=== PATIENT | female | born 2005 | race Caucasian/White ===

== ENCOUNTER 2025-04-16 23:49 | Emergency (ER) | payer BC, SELFPAY ==
--- OUTSIDE RECORDS SUMMARY | 2023-11-20 08:00 | XMS_ITS ---
Author Organization Arpan Munoz M.D. Address [address] [place] [address] [facility] [place] [address] Care Team Providers Care Industrial Millwright Name Role Phone Ksenia Delgadillo Primary Care Provider Mary Beth ReyseCarlito Unavailable [phone] REASON FOR VISIT d/t pt having a cold Medications Medication SIG (Take, Route, Frequency, Duration) Notes Start Date End Date Status Na Sulfate-K Sulfate-Mg Sulf 17.5-3.13-1.6 GM/177ML Orally; Duration: 1 days 10/23/2023 Act nazia Procedures Procedure Date Ordered Date Performed Result Body Sit e COLONOSCOPY w/ MAC 11/20/2023 12/21/2023 N/A Encounters Encounter Location Date Provider Diagnosis [address] [place] [address] 11/20/2023 Carlito Reyes Diarrhea, unspecifie d R19.7 and Generalized abdominal pain R10.84 Assessments Encounter Date Diagnosis (ICD Code) Assessment Notes Treatment Notes Treatment Clinical Notes Section Notes 11/20/2023 Diarrhea, unspecified (ICD-10 - R19.7) Patient Educated with: Colonoscopy (Colonoscopy.pdf ) Patient Educated with: http://[email or web address] Digital.Integrata Security/ (http://www.G4S.com/) 11/20/2023 Generalized abdominal pain (ICD-10 - R10.84) Plan Of Treatment Medication Medication Name Sig Start Date Stop Date Notes Na Sulfate-K Sulfate-Mg Sulf 17.5-3.13-1.6 GM/177ML Orally; Duration: 1 days 10/23/2023 Treatment Notes Assessment Notes Diarrhea, unspecified Patient Educated w ith: Colonoscopy (Colonoscopy.pdf) Patient Educated with: http://www.Deliveroo/ (http://www.Deliveroo/) Progress Notes * Laya JEAN RDOB: (19 yo M)Acc No.[id number]:11/20/2023 Progress Note Patient: Laya TREVIZO Provider: Joan Reyes MD :2005 A ge:18 Y S ex:Male Date:11/20/2023 Address:[address] [place] [address], [place], [id number] Pcp:Ksenia Delgadillo Subjective: * Chief Complaints: * 1 . D/t pt having a cold. * Medical History: Objective: * Vitals: Assessment: * Assessment: 1. D iarrhea, unspecified - R19.7 2 . G eneralized abdominal pain - R10.84? Plan: * Treatment: Notes: Patient Educated with: Colonoscopy (Colonoscopy.pdf) Patient Educated with: http://www.Deliveroo/ (http://www.Deliveroo/)??2.?Generalized abdominal pain?Procedure: COLONOSCOPY w/ MAC (Performed Date - 12/21/2023)* Avis Stevens 10/23/2023 2:28:36 PM > CSP scheduled with anesthesia 11/20/2023 @ 2:00 PM.Joanna Copeland 11/19/2023 8:50:37 AM > Patient rescheduled CSP w/ MAC to 12/21/23 @10:00am * Images: Billing Information: * Visit Code: * Procedure Codes: * Electronic signature of Aust in MD Eric on 04/16/2025 at 08:51 PM AKST Sign off status: Pending * Provider: Joan Reyes MD Date: 0 11/20/2023 Generated for Aston thomas/Avila/eTransmitting on: 1 06/16/2024 08:51 PM AKST
--- OUTSIDE RECORDS SUMMARY | 2023-11-20 08:00 | XMS_ITS ---
Author Organization Arpan Munoz M.D. Address [address] [place] [address] [facility] [place] [address] Care Team Providers Care Regional Operations Manager Name Role Phone Ksenia Delgadillo Primary Care Provider Mary Beth ReyesCarlito Unavailable [phone] REASON FOR VISIT d/t pt having a cold Medications Medication SIG (Take, Route, Frequency, Duration) Notes Start Date End Date Status Na Sulfate-K Sulfate-Mg Sulf 17.5-3.13-1.6 GM/177ML Orally; Duration: 1 days 10/23/2023 Act nazia Procedures Procedure Date Ordered Date Performed Result Body Sit e COLONOSCOPY w/ MAC 11/20/2023 12/21/2023 N/A Encounters Encounter Location Date Provider Diagnosis [address] [place] [address] 11/20/2023 Carlito Reyes Diarrhea, unspecifie d R19.7 and Generalized abdominal pain R10.84 Assessments Encounter Date Diagnosis (ICD Code) Assessment Notes Treatment Notes Treatment Clinical Notes Section Notes 11/20/2023 Diarrhea, unspecified (ICD-10 - R19.7) Patient Educated with: Colonoscopy (Colonoscopy.pdf ) Patient Educated with: http://[email or web address].[email or web address]/ (http://www.iMICROQ.com/) 11/20/2023 Generalized abdominal pain (ICD-10 - R10.84) Plan Of Treatment Medication Medication Name Sig Start Date Stop Date Notes Na Sulfate-K Sulfate-Mg Sulf 17.5-3.13-1.6 GM/177ML Orally; Duration: 1 days 10/23/2023 Treatment Notes Assessment Notes Diarrhea, unspecified Patient Educated w ith: Colonoscopy (Colonoscopy.pdf) Patient Educated with: http://www.Novatris/ (http://www.Novatris/) Progress Notes * Laya JEAN RDOB: (19 yo M)Acc No.[id number]:11/20/2023 Progress Note Patient: Laya TREVIZO Provider: Joan Reyes MD :2005 A ge:18 Y S ex:Male Date:11/20/2023 Address:[address] [place] [address], [place], [id number] Pcp:Ksenia Delgadillo Subjective: * Chief Complaints: * 1 . D/t pt having a cold. * Medical History: Objective: * Vitals: Assessment: * Assessment: 1. D iarrhea, unspecified - R19.7 2 . G eneralized abdominal pain - R10.84? Plan: * Treatment: Notes: Patient Educated with: Colonoscopy (Colonoscopy.pdf) Patient Educated with: http://www.Novatris/ (http://www.Novatris/)??2.?Generalized abdominal pain?Procedure: COLONOSCOPY w/ MAC (Performed Date - 12/21/2023)* Avis Stevens 10/23/2023 2:28:36 PM > CSP scheduled with anesthesia 11/20/2023 @ 2:00 PM.Joanna Copeland 11/19/2023 8:50:37 AM > Patient rescheduled CSP w/ MAC to 12/21/23 @10:00am * Images: Billing Information: * Visit Code: * Procedure Codes: * Electronic signature of Aust in MD Eric on 04/17/2025 at 12:08 AM AKST Sign off status: Pending * Provider: Joan Reyes MD Date: 0 11/20/2023 Generated for Aston thomas/Avila/eTransmitting on: 1 06/17/2024 12:08 AM AKST
--- OUTSIDE RECORDS SUMMARY | 2023-12-21 04:00 | XMS_ITS ---
Author Organization Arpan Munoz M.D. Address [address] [place] [address] [address] [place] [address] Care Team Providers Care Farm Tractor Operator Name Role Phone Ksenia Delgadillo Primary Care Provider Carlito Lindsay [phone] REASON FOR VISIT w/ MAC Encounters Encounter Location Date Provider Diagnosis [address] [place] [address] 12/21/2023 Carlito Reyes Plan Of Treatment No Information Progress Notes * Laya JEAN RDOB: (19 yo M)Acc No.[id number]:12/21/2023 Progress Note Patient: Ramon FRANCOLaya GRIFFIN Provider: Joan Reyes MD :2005 A ge:18 Y S ex:Male Date:12/21/2023 Address:[facility] [address] [id number] Pcp:Ksenia Delgadillo Subjective: * Chief Complaints: * 1 . w/ MAC. * Medical History: Objective: * Vitals: Assessment: Plan: * Treatment: * Images: Billing Information: * Visit Code: * Procedure Codes: * Electronic signature of Aust in MD Eric on 04/16/2025 at 08:51 PM AKST Sign off status: Pending * Provider: Joan Reyes MD Date: 0 12/21/2023 Generated for Printi ng/Faxing/eTransmitting on: 06/16/2024 08:51 PM AKST
--- OUTSIDE RECORDS SUMMARY | 2023-12-21 04:00 | XMS_ITS ---
Author Organization Arpan Munoz M.D. Address [address] [place] [address] [address] [place] [id number] Care Team Providers Care Electric Transfer Operator Name Role Phone Ksenia Delgadillo Primary Care Provider Carlito Lindsay [phone] REASON FOR VISIT w/ MAC Encounters Encounter Location Date Provider Diagnosis [address] [place] [id number] 12/21/2023 Carlito Reyes Plan Of Treatment No Information Progress Notes * Laya JEAN RDOB: (19 yo M)Acc No.[id number]:12/21/2023 Progress Note Patient: Ramon FRANCOLaya GRIFFIN Provider: Joan Reyes MD :2005 A ge:18 Y S ex:Male Date:12/21/2023 Address:[facility] [address] [id number] Pcp:Ksenia Delgadillo Subjective: * Chief Complaints: * 1 . w/ MAC. * Medical History: Objective: * Vitals: Assessment: Plan: * Treatment: * Images: Billing Information: * Visit Code: * Procedure Codes: * Electronic signature of Aust in MD Eric on 04/17/2025 at 12:08 AM AKST Sign off status: Pending * Provider: Joan Reyes MD Date: 0 12/21/2023 Generated for Printi ng/Faxing/eTransmitting on: 1 06/17/2024 12:08 AM AKST
--- OUTSIDE RECORDS SUMMARY | 2025-04-16 23:51 | XMS_ITS | Patient Health Record ---
Author Organization Arpan Munoz M.D. Address [address] [facility] [address] [place] [address] Care Team Providers Care Gospel Singer Name Role Phone Ksenia Delgadillo Primary Care Provider Carlito Lindsay Unavailable [phone] Allergies No Known Allergies Reason For Referral No Information Medications Medication SIG (Take, Route, Frequency, Duration) Notes Start Date End Date Status Na Sulfate-K Sulfate-Mg Sulf 17.5-3.13-1.6 GM/177ML Orally; Duration: 1 days 10/23/2023 Active Erythromycin Ethylsuccinate 200 MG/5ML 5 ml Orally qd Active Reglan 5 MG 1 tablet before meal s Orally Twice a day; Duration: 30 day(s) Active Ondansetron 4 MG 1 tablet on the tong ue and allow to dissolve Orally Once a day prn Active Omeprazole 20 MG 1 capsule 30 minutes before morning meal Orally Once a day prn Active Nexplanon 68 MG as directed Subcutaneous Active Escitalopram Oxalate 5 MG 1/2 tablet Ora lly Once a day Active Tretinoin 0.05 % External; Duration: 30 Days prn Active Social History Tobacco Use: Social History Observation Description Date Details (start date - stop date) Never Smoker NA - NA Tobacco Use/Smoking Question Answer Notes Are you a nonsmoker Alcohol Screen Question Answer Notes Did you have a drink containing alcohol in the p ast year? No Points 0 Interpretation Negative Problems Problem Type SNOMED Code ICD Code Onset Dates Problem Status W/U Status Risk Notes Problem Generalized abdominal pain (605340456) Generalized abdominal pain (R10.84) Active confirmed Problem Diarrhea (52099626) Diarrhea, unspecified (R19.7) Active confirmed Problem Gastroparesis (463536815) Gastroparesis (K31.84) Active confirmed Plan Of Treatment Pending Test Test Name Order Date Immunoglobulins Quantitative A/E/G/M, Se rum 09/23/2023 Iron/TIBC* 09/23/2023 Insurance Providers Payer Name Payer Address Payer Phone Subscriber Number Group Number Insured Name Patient Relationship to Insured Coverage Start Date Coverage End Date [employer] [address] [address] [place], [place] [id number] Ariane Cortez Child - Insured has Financial Responsibility [facility] [address] [address] [place] [address] [id number] Ju[address] Duncan Child - Insured has Financial Responsibility Medical (General) History Medical History History ICD Code Iron deficiency Gastroparesis Gastroesophageal reflux disease (GERD) Bleeding disorder Poor appetite Family history of hereditarty hemorrhagi c telangiectasia (HHT) History of mononucleosis Menorrhagia Surgical History Surgery Date(Month/Year) EGD 11/2022 Nasal septum surgery 2020
--- OUTSIDE RECORDS SUMMARY | 2025-04-16 23:51 | XMS_ITS | Clinical Summary ---
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 Iron deficiency anemia 02/15/2024 Overview (02/15/2024): Received IV Iron 2022 in [place]. Anxiety 02/15/2024 Overview (02/15/2024): Anxiety: on Lexapro. Encounters Date Type Department Care Team Description 03/03/2025 2:40 PM CDT Office Visit [facility] [address] [place] [address] Carolina Sifuentes MD Follow Up (Still fatigued - roommate has [employer]. /Exhausted after running/Elevated HR at rest /Increased foot intake - feels more tired) 03/03/2025 Travel 02/20/2025 Telephone [facility] [address] [place] [address] Carolina Sifuentes MD Lab (Thyroid) 02/17/2025 3:30 PM CDT Ancillary Procedure [facility] [address] [place] [address] 02/17/2025 2:40 PM CDT Office Visit [facility] [address] [place] [address] Carolina Sifuentes MD Breathing Problem (vocal cord dysfunction /episode 3ish weeks ago. Still fatigued and struggling ) 02/17/2025 Travel from Last 3 Months Social History Tobacco Use Types Packs/Day Years Used Date Smoking Tobacco: Never Smokeless Tobacco: Never Tobacco Cessation:Counseling Given: Yes Alcohol Use Standard Drinks/Week Comments Never 0 (1 standard drink = 0.6 oz pur e alcohol) Social Connections Answer Date Recorded Do you often feel lonely or isolated from those around you? 4 02/17/2025 Alcohol Use Answer Date Recorded How often do you have a drink containing alcohol ? 0 02/17/2025 Average Number of Drinks Not on file 025 Frequency of Binge Drinking Not on file 01/30 Financial Resource Strain Answer Date R ecorded Difficulty of Paying Living Expenses 3 02/17/2025 Difficulty of Paying Living Expenses Not on file 02/17/2025 Food Insecurity Answer Date Recorded Do you worry your food will run out before you are able to buy more? 1 02/17/2025 Transportation Needs Answer Date Record ed Does lack of transportation keep you from medica l appointments? 1 02/17/2025 Does lack of transportation keep you from work, meetings or getting things that you need? 1 02/17/2025 Housing Stability Answer Date Recorded What is your housing situation today? 1 02/17/2025 Utilities Answer Date Recorded Do you have trouble paying f or utilities (for example, heat, electricity, water, phone)? 1 02/17/2025 Comments No Sex and Gender Information Value Date Recorded Sex Assigned at Not on file Legal Sex Female 9:55 AM CDT Gender Identity Not on file Sexual Orientation Not on file Obstetrics History Last Filed Vital Signs Vital Sign Reading Time Taken Comments Blood Pressure 116/74 03/03/2025 2:31 PM CDT Pulse 54 03/03/2025 2:31 PM CDT Temperature - - Respiratory Rate - - Oxygen Saturation 99% 03/03/2025 2:31 PM CDT Inhaled Oxygen Concentration - - Weight 60.1 kg (132 lb 8 oz) 02/15/2024 3:34 PM CDT Height - - Body Mass Index - - Plan of Treatment Health Maintenance Due Date Last Done Comments Well Child Check for age 3-20 06/03/2008 Tetanus booster 2016 Depression screening for age 12+ 2017 HIV for age 15-65 2020 HPV series for age 9-45 (1 - 3-dose series) 2020 Chlamydia for age 16-24 2021 BMI (ht and wt on same day) for age 18+ 2023 Hepatitis C screening for age 18-79 2023 Hepatitis B series for 19+ ( 1 of 3 - 19+ 3-dose series) 2024 Influenza Vaccine (#1) 2025 RSV vaccine for adults or pr egnancy (1 - 1-dose 75+ series) 2080 Meningococcal series for age 11-21 Aged Out No longer eligible based on patient's age to complete this topic Pneumococcal series for age 6-49 Aged Out No longer eligible based on patient's age to complete this topic Procedures Procedure Name Priority Date/Time Associated Diagnosis Comments HETEROPHILE Routine 03/03/2025 2:58 PM CDT Fatigue, unspecified type TSH WITH REFLEX Add On 02/17/2025 3:36 PM CDT Fatigue, unspecified type CBC WITH AUTO DIFFERENTIAL Routine 02/17/2025 3:36 PM CDT Fatigue, unspecified type Difficulty breathing LYME SCREEN W/REFLEX Routine 02/17/2025 3:36 PM CDT Fatigue, unspecified type Difficulty breathing CMV IGM ANTIBODY Routine 02/17/2025 3:36 PM CDT Fatigue, unspecified type Difficulty breathing EBV AB IGG IGM AND EBNA Routine 02/17/2025 3:36 PM CDT Fatigue, unspecified type Difficulty breathing VITAMIN D 25 (DEFICIENCY) Routine 02/17/2025 3:36 PM CDT Fatigue, unspecified type Difficulty breathing COMP METABOLIC PANEL Routine 02/17/2025 3:36 PM CDT Fatigue, unspecified type Difficulty breathing CBC WITH AUTO DIFFERENTIAL Routine 02/17/2025 3:36 PM CDT Fatigue, unspecified type Difficulty breathing FERRITIN Routine 02/17/2025 3:36 PM CDT Fatigue, unspecified type Difficulty breathing XR CHEST 2 VIEWS PA AND LATERAL Routine 02/17/2025 3:30 PM CDT Exercise induced laryngeal obstruction (EILO) Fatigue, unspecified type Difficulty breathing from Last 3 Months Results * HETEROPHILE (03/03/2025 2:58 PM CDT) [facility] HETEROPHILE, MONO SCREEN NEGATIVE NEGATIVE 03/04/2025 12:45 PM CDT [facility] Blood BLOOD SPECIMEN / Unknown [facility] / Unknown 03/03/2025 2:58 PM CDT 03/03/2025 2:58 PM CDT Carolina Sifuentes MD HEMATOLOGY Fi nal Result [facility] [id number] [place] [address], * (ABNORMAL) CBC WITH AUTO DIFFERENTIAL (02/17/2025 3:36 PM CDT) [facility] WHITE BLOOD CELL COUNT 6.4 3.8 - 10.8 Thousand/ uL 02/18/2025 3:44 AM CDT [facility] RED BLOOD CELL COUNT 4.78 3.80 - 5.10 Million/u L 02/18/2025 3:44 AM CDT [facility] HEMOGLOBIN 14.8 11.7 - 15.5 g/dL 02/18/2025 3:44 AM CDT [facility] HEMATOCRIT 45.5(H) 35.0 - 45.0 % 02/18/2025 3:44 AM CDT [facility] MCV 95.2 80.0 - 100.0 fL 02/18/2025 3:44 AM CDT [facility] MCH 31.0 27.0 - 33.0 pg 02/18/2025 3:44 AM CDT [facility] MCHC 32.5 32.0 - 36.0 g/dL 02/18/2025 3:44 AM CDT [facility] Comment: For adults, a slight decrease in the calculated MCHC value (in the range of 30 to 32 g/dL) is most likely not clinically significant; however, it should be interpreted with caution in correlation with other red cell parameters and the patient's clinical condition. RDW 12.4 11.0 - 15.0 % 02/18/2025 3:44 AM CDT [facility] PLATELET COUNT 279 140 - 400 Thousand/ uL 02/18/2025 3:44 AM CDT [facility] MPV 10.6 7.5 - 12.5 fL 02/18/2025 3:44 AM CDT [facility] NEUTROPHILS 63.3 % 02/18/2025 3:44 AM CDT [facility] LYMPHOCYTES 26.6 % 02/18/2025 3:44 AM CDT [facility] MONOCYTES 7.0 % 02/18/2025 3:44 AM CDT [facility] EOSINOPHILS 2.3 % 02/18/2025 3:44 AM CDT [facility] BASOPHILS 0.8 % 02/18/2025 3:44 AM CDT [facility] ABSOLUTE NEUTROPHILS 4051 1500 - 7800 cells/uL 02/18/2025 3:44 AM CDT [facility] ABSOLUTE LYMPHOCYTES 1702 850 - 3900 cells/uL 02/18/2025 3:44 AM CDT [facility] ABSOLUTE MONOCYTES 448 200 - 950 cells/uL 02/18/2025 3:44 AM CDT [facility] ABSOLUTE EOSINOPHILS 147 15 - 500 cells/uL 02/18/2025 3:44 AM CDT [facility] ABSOLUTE BASOPHILS 51 0 - 200 cells/uL 02/18/2025 3:44 AM CDT [facility] Blood BLOOD SPECIMEN / Unknown [facility] / Unknown 02/17/2025 3:36 PM CDT 02/17/2025 3:36 PM CDT Carolina Sifuentes MD HEMATOLOGY Fi nal Result [facility] [address] [address], * TSH WITH REFLEX (02/17/2025 3:36 PM CDT) TSH W/REFLEX TO FT4 1.41 mIU/L 02/22/2025 3:53 AM CDT [facility] Comment: Reference Range 1-19 Years 0.50-4.30 Ranges First trimester 0.26-2.66 Second trimester 0.55-2.73 Third trimester 0.43-2.91 Blood BLOOD SPECIMEN / Unknown [facility] / Unknown 02/17/2025 3:36 PM CDT 02/17/2025 3:36 PM CDT Carolina Sifuentes MD CHEMISTRY Fi nal Result [facility] [address] [address], * VITAMIN D 25 (DEFICIENCY) (02/17/2025 3:36 PM CDT) VITAMIN D,25-OH,TOTAL,IA 44 30 - 100 ng/mL 02/18/2025 4:57 AM CDT [facility] Comment: Vitamin D Status 25-OH Vitamin D: Deficiency: <20 ng/mL Insufficiency: 20 - 29 ng/mL Optimal: > or = 30 ng/mL For 25-OH Vitamin D testing on patients on D2-supplementation and patients for whom quantitation of D2 and D3 fractions is required, the QuestAssureD(TM) 25-OH VIT D, (D2,D3), LC/MS/MS is recommended: order code 21509 (patients >2yrs). See Note 1 Note 1 For additional information, please refer to http://education.[employer]/faq/COL923 (This link is being provided for informational/ educational purposes only.) Blood BLOOD SPECIMEN / Unknown [facility] / Unknown 02/17/2025 3:36 PM CDT 02/17/2025 3:36 PM CDT Carolina Sifuentes MD SEND OUTS Fi nal Result Performing Organization Address [facility] Co de Phone Number [facility] [address] [address], [place] [phone] * (ABNORMAL) EBV AB IGG IGM AND EBNA (02/17/2025 3:36 PM CDT) EBV VIRAL CAPSID AG (VCA) AB (IGG) 169.00(H) U/mL 02/18/2025 3:50 PM CDT [facility] Comment: U/mL Interpretation ---- <18.00 Negative 18.00-21.99 Equivocal >21.99 Positive EBV VIRAL CAPSID AG (VCA) AB (IGM) <36.00 U/mL 02/18/2025 3:50 PM CDT [facility] Comment: U/mL Interpretation ---- <36.00 Negative 36.00-43.99 Equivocal >43.99 Positive EBV NUCLEAR AG (EBNA) AB (IGG) >600.00(H ) U/mL 02/18/2025 3:50 PM CDT [facility] Comment: U/mL Interpretation ---- <18.00 Negative 18.00-21.99 Equivocal >21.99 Positive BERTHA MCKEON VIRUS ANTIBODY PANEL INTERPRETATION SEE NOTE 02/18/2025 3:50 PM CDT [facility] Comment: Suggestive of a past Bertha-Mckeon virus infection. In infants, a similar pattern may occur as a result of passive maternal transfer of antibody. Blood BLOOD SPECIMEN / Unknown [facility] / Unknown 02/17/2025 3:36 PM CDT 02/17/2025 3:36 PM CDT Carolina Sifuentes MD SEND OUTS Fi nal Result Performing Organization Address [facility] Co de Phone Number [facility] [address] [place] [address], * LYME SCREEN W/REFLEX (02/17/2025 3:36 PM CDT) [facility] LYME AB, SCREEN < or = 0.90 index 02/20/2025 10:55 PM CDT [facility] Comment: REFERENCE RANGE: < OR = 0.90 Index Index Interpretation < OR = 0.90 NEGATIVE 0.91 - 1.09 EQUIVOCAL > OR = 1.10 POSITIVE This assay measures Lyme Disease (Borrelia burgdorferi) IgG plus IgM antibodies; it does not distinguish results that are both IgG and IgM positive from results that are either IgG or IgM positive. As recommended by the Centers for Disease Control and Prevention (CDC), all samples with positive or equivocal results in this screening assay will be tested using separate supplemental Lyme IgG and IgM immunoassays. Positive or equivocal screening assay results should not be interpreted as truly positive until verified as such using the supplemental assays. Screening and/or supplemental tests for Lyme disease antibodies may be falsely negative in early stages of Lyme disease, including the period when erythema migrans is apparent. These assays may be falsely positive in patients with other spirochetal diseases (e.g., syphilis) or infectious mononucleosis. Blood BLOOD SPECIMEN / Unknown [facility] / Unknown 02/17/2025 3:36 PM CDT 02/17/2025 3:36 PM CDT Carolina Sifuentes MD SEND OUTS nal Result [facility] [address] [place] [address], * CMV IGM ANTIBODY (02/17/2025 3:36 PM CDT) [facility] CYTOMEGALOVIRUS ANTIBODY (IGM) <30.00 AU/mL 02/18/2025 3:43 PM CDT [facility] Comment: AU/mL Interpretation ----- <30.00 No Antibody Detected 30.00-34.99 Equivocal > or = 35.00 Antibody Detected Results from any one IgM assay should not be used as a sole determinant of a current or recent infection. Because an IgM test can yield false positive results and low level IgM antibody may persist for more than 12 months post infection, reliance on a single test result could be misleading. Acute infection is best diagnosed by demonstrating the conversion of IgG from negative to positive. If an acute infection is suspected, consider obtaining a new specimen and submit for both IgG and IgM testing in two or more weeks. Blood BLOOD SPECIMEN / Unknown [facility] / Unknown 02/17/2025 3:36 PM CDT 02/17/2025 3:36 PM CDT Carolina Sifuentes MD SEND OUTS Fi nal Result Performing Organization Address [facility]/ZIP Co de Phone Number [facility] [address] [address], [place] [phone] * FERRITIN (02/17/2025 3:36 PM CDT) FERRITIN 55 16 - 154 ng/mL 02/18/2025 4:57 AM CDT [facility] Blood BLOOD SPECIMEN / Unknown [facility] / Unknown 02/17/2025 3:36 PM CDT 02/17/2025 3:36 PM CDT Carolina Sifuentes MD CHEMISTRY Fi nal Result Performing Organization Address [facility] Co de Phone Number [facility] [address] [address], [place] [phone] * COMP METABOLIC PANEL (02/17/2025 3:36 PM CDT) SODIUM 140 135 - 146 mmol/L 02/18/2025 5:17 AM CDT [facility] POTASSIUM 4.0 3.8 - 5.1 mmol/L 02/18/2025 5:17 AM CDT [facility] CHLORIDE 101 98 - 110 mmol/L 02/18/2025 5:17 AM CDT [facility] CARBON DIOXIDE 28 20 - 32 mmol/L 02/18/2025 5:17 AM CDT [facility] GLUCOSE 83 65 - 99 mg/dL 02/18/2025 5:17 AM CDT [facility] Comment: Fasting reference interval CALCIUM 9.9 8.9 - 10.4 mg/dL 02/18/2025 5:17 AM CDT [facility] CREATININE 0.95 0.50 - 0.96 mg/dL 02/18/2025 5:17 AM CDT [facility] BUN/CREATININE RATIO SEE NOTE: 6 - 22 (calc) 02/18/2025 5:17 AM CDT [facility] Comment: Not Reported: BUN and Creatinine are within reference range. EGFR 89 > OR = 60 mL/min/1. 73m2 02/18/2025 5:17 AM CDT [facility] ALBUMIN 5.1 3.6 - 5.1 g/dL 02/18/2025 5:17 AM CDT [facility] PROTEIN, TOTAL 8.0 6.3 - 8.2 g/dL 02/18/2025 5:17 AM CDT [facility] BILIRUBIN, TOTAL 0.5 0.2 - 1.1 mg/dL 02/18/2025 5:17 AM CDT [facility] ALKALINE PHOSPHATASE 90 36 - 128 U/L 02/18/2025 5:17 AM CDT [facility] ALT 25 5 - 32 U/L 02/18/2025 5:17 AM CDT [facility] AST 29 12 - 32 U/L 02/18/2025 5:17 AM CDT [facility] UREA NITROGEN (BUN) 18 7 - 20 mg/dL 02/18/2025 5:17 AM CDT [facility] GLOBULIN 2.9 2.0 - 3.8 g/dL (calc) 02/18/2025 5:17 AM CDT [facility] ALBUMIN/GLOBULI N RATIO 1.8 1.0 - 2.5 (calc) 02/18/2025 5:17 AM CDT [facility] Blood BLOOD SPECIMEN / Unknown [facility] / Unknown 02/17/2025 3:36 PM CDT 02/17/2025 3:36 PM CDT us Carolina Sifuentes MD CHEMISTRY Fi nal Result [facility] [address] [place] [address], * XR CHEST 2 VIEWS PA AND LATERAL (02/17/2025 3:30 PM CDT) Anatomical Region Laterality Modality CHEST, THORAX, Lung, HEART Compu aaliyah Radiography 02/17/2025 3:51 PM CDT Impressions 02/17/2025 3:51 PM CDT No acute findings. Dictated by Donny Mcmullen MD @ 02/17/2025 3:51:07 PM (Electronically Signed) Narrative 02/17/2025 3:51 PM CDT For Patients: As a result of the Cures Act, medical imaging exams and procedure reports are released immediately into your electronic medical record. You may view this report before your referring provider. If you have questions, please contact your health care provider. INDICATION: Difficulty breathing Exercise induced laryngeal obstruction (EILO) TECHNIQUE: Chest 2 views COMPARISON: None FINDINGS: Cardiovascular and mediastinum: Heart size and vasculature are normal in caliber and appearance. Lungs and pleural spaces: Lungs are clear. No sign of infiltrate or mass. No sign of pleural effusion. No pneumothorax. Bones and soft tissues: No significant findings. Procedure Note Donny Mcmullen MD - 02/17/2025 For Patients: As a result of the Cures Act, medical imagingexams and procedure reports are released immediately into your electronicmedical record. You may view this report before your referring provider.If you have questions, please contact your health care provider. INDICATION: Difficulty breathing Exercise induced laryngeal obstruction (EILO) TECHNIQUE: Chest 2 views COMPARISON: None FINDINGS: Cardiovascular and mediastinum: Heart size and vasculature are normal incaliber and appearance. Lungs and pleural spaces: Lungs are clear. No sign of infiltrate ormass. No sign of pleural effusion. No pneumothorax. Bones and soft tissues: No significant findings. IMPRESSION: No acute findings. Dictated by Donny Mcmullen MD @ 02/17/2025 3:51:07 PM (Electronically Signed) Carolina Sifuentes MD GENERAL IMAGING Fi nal Result from Last 3 Months Insurance [facility] EMP Care Teams Piano Mechanic Relationship Specialty Start Date End Date Pcp, No . PCP - General 02/15/24
[2025-04-16 23:55] VITALS: BP 125/78; BP 128/81; PULSE 86; PULSE 90; RESP 18; TEMP 36.8; O2SAT 99; BMI 21.8
[2025-04-17 00:05] LABS: Appearance Urine Slightly Cloudy (Clear)
[2025-04-17 01:55] VITALS: BP 129/84; PULSE 81; RESP 18; TEMP 36.8; O2SAT 99
--- NOTE | 2025-04-17 02:23 | ED_ITS ---
HPI - Female Genitourinary General Time Seen by Provider: 02:23 Date Seen: 04/17/25 Chief complaint: Urogenital Problems, Female Stated complaint: UTI Time Seen by Provider: 04/17/25 02:23 Source: patient Mode of arrival: ambulatory History of Present Illness HPI Narrative: Laya is a 19-year-old female with no significant past medical history who presents the emergency department for evaluation of dysuria. Patient complains of lower urinary symptoms with dysuria and a small amount of blood with her urine yesterday. Patient also complains of generalized body aches, subjective fever, chills, headache, nausea, reports flu-like symptoms that have been worsening for the past 48 hours. Patient denies any specific sick contacts however if patient is a college student. Patient took ibuprofen earlier in the day. No other complaints. Related Data Home Medications ?Medication ?Instructions ?Recorded ?Confirmed escitalopram oxalate 10 mg tablet 10 mg PO DAILY 03/1904/16/25 Previous Rx's ?Medication ?Instructions ?Recorded budesonide-formoterol HFA 80 2 puff inhalation BID #1 ea 03/19/24 mcg-4.5 mcg/actuation aerosol inhaler Allergies Allergy/AdvReac Type Severity Reaction Status Date / Time No Known Drug Allergies Allergy Verified 04/16/25 23:57 Review of Systems Narrative: Past medical history, past surgical history, medications, allergies, family history, and social history were reviewed with the patient. No additional pertinent items. A medically appropriate review of systems was performed with pertinent positives and negatives noted in HPI, all other systems negative. PFSH [facility] Social History Smoking Status: Never smoker Second hand tobacco smoke exposure: No How often do you have a drink containing alcohol: never AUDIT-C Alcohol total score: 0 Non-prescribed substance use: denies use Exam Narrative: Exam Narrative: General: Afebrile, ill but nontoxic appearing, HEENT: Normocephalic, atraumatic, conjunctiva normal. Posterior pharynx with mild erythema, no significant swelling, no exudates, no asymmetry. MMM Neck: non-tender, supple Cardio: regular rate. regular rhythm Resp: Normal work of breathing, no respiratory distress, lungs clear bilaterally, no wheezing, rhonchi, rales Chest/Back: no visual signs of trauma, no midline tenderness, no CVA tenderness Abdomen: soft, non distension, no tenderness, no peritoneal signs Neuro: alert and fully oriented. CN II-XII grossly intact. Grossly normal strength and sensation in all extremities. MSK: no deformities. Normal range of motion Integumentary/Skin: no rash visualized, normal color Psych: normal affect, normal behavior Const: Vital Signs, click to edit/add: Vital Signs - 24 hr 04/16/25 23:55 04/16/25 23:55 04/17/25 01:55 Temperature 98.2 F 98.2 F 98.2 F Pulse Rate [Right Pulse Oximeter] 90 86 81 Respiratory Rate 18 18 18 Blood Pressure [Ri ght Upper Arm] 128/81 125/78 129/84 Pulse Oximetry 99 99 99 Oxygen Delivery Me thod Room Air Room Air Room Air 04/17/25 03:10 04/17/25 03:11 Temperature 98.2 F 98.2 F Pulse Rate [Right Pulse Oximeter] 84 84 Respiratory Rate 18 18 Blood Pressure [Ri ght Upper Arm] 129/84 129/84 Pulse Oximetry 99 Oxygen Delivery Me thod Room Air Course Vital Signs Vital signs: Initial Vital Signs Temperature 98.2 F 04/16/25 23:55 Temperature Source Oral 04/16/25 23:55 Pulse Rate 90 04/16/25 23:55 Respiratory Rate 18 04/16/25 23:55 Respiratory Effort Normal, Spontaneous, Non-Labored 04/16/25 23:55 Respiratory Depth Normal 04/16/25 23:55 Blood Pressure 128/81 04/16/25 23:55 Blood Pressure Mean 96 04/16/25 23:55 Blood Pressure Position Sitting 04/16/25 23:55 Pulse Oximetry 99 04/16/25 23:55 Oxygen Delivery Method Room Air 04/16/25 23:55 Vital Signs Temperature 98.2 F 04/16/25 23:55 Pulse Rate 90 04/16/25 23:55 Respiratory Rate 18 04/16/25 23:55 Blood Pressure 128/81 04/16/25 23:55 Pulse Oximetry 99 04/16/25 23:55 Oxygen Delivery Method Room Air 04/16/25 23:55 Temperature 98.2 F 04/17/25 03:11 Pulse Rate 84 04/17/25 03:11 Respiratory Rate 18 04/17/25 03:11 Blood Pressure 129/84 04/17/25 03:11 Pulse Oximetry 99 04/17/25 03:10 Oxygen Delivery Method Room Air 04/17/25 03:10 Medications Administered Medications: Discontinued Medications Generic Name Dose Route Start Last Admin Trade Name Fernanda PRN Reason Stop Dose Admin Acetaminophen 1,000 mg 04/17/25 02:50 04/17/25 03:02 Acetaminophen 500 Mg Tablet PO 04/17/25 02:51 1,000 mg ONCE ONE Administration Diphenhydramine HCl 25 mg 04/17/25 02:50 04/17/25 03:02 Diphenhydramine 25 Mg Capsule PO 04/17/25 02:51 25 mg ONCE ONE Administration Ibuprofen 600 mg 04/17/25 02:50 04/17/25 03:02 Ibuprofen 200 Mg Tablet PO 04/17/25 02:51 600 mg ONCE ONE Administration MDM - Female Genitourinary MDM Narrative Medical decision making narrative: Laya is a 19-year-old female with no significant past medical history who presents the emergency department for evaluation of dysuria. Upon arrival patient is nontoxic appearing, afebrile, in distress. Differential diagnosis includes but is not limited to viral illness versus COVID versus influenza versus RSV versus cystitis versus pyelonephritis among others. Urinalysis remarkable for cloudy appearance,+ blood, trace leukocyte esterase, 2-5 white blood cells. I discussed results with patient. No significant evidence of acute cystitis/low suspicious for pyelonephritis however given patient's urinary symptoms, will follow up urine culture. I discussed at length with patient and patient is agreeable for discharge with antibiotics to take if ongoing or worsening symptoms over the next 24-48 hours. If no worsening or symptoms, or improvement of symptoms, will hold off on antibiotics with supportive care, oral hydration. Patient also here with flu-like illness so strep and influenza/COVID performed. Viral testing negative for influenza/COVID/RSV/strep. Patient feels comfortable discharge with continued supportive care, oral hydration, Tylenol, ibuprofen. Patient discharged with a prescription for Keflex to take if worsening urinary symptoms or persistent high fever. Return precautions discussed. Patient understands agrees the plan. Medical Records Attestation: I reviewed the patient's medical records. Lab Data Attestation: I reviewed the patient's lab results. Labs: Lab Results 04/16/25 04/17/25 Range/Units 23:54 02:50 Urine Color Yellow (Yellow) Urine Appearance Slightly Cloudy A (Clear) Urine pH 6.0 (5.0-8.5) Ur Specific [place] 1.020 (1.000-1.030) Urine Protein 1+ A (Negative) Urine Glucose (UA) Negative (Negative) Urine Ketones Trace A (Negative) Urine Blood 1+ A (Negative) Urine Nitrite Negative (Negative) Urine Bilirubin Negative (Negative) Urine Urobilinogen 1.0 (0.2-1.0) Ur Leukocyte Esterase Trace A (Negative) Urine RBC 2-5 A (0-2) Urine WBC 2-5 (0-5) Ur Squamous Epith Cells None (None-Few) Urine Bacteria Few A (None) SARS-CoV-2 (PCR) Negative SARS-CoV-2 (Negative) Influenza Type A (PCR) Negative PCR FLU A (Negative) Influenza Type B (PCR) Negative PCR FLU B (Negative) RSV (PCR) Negative PCR RSV (Negative) Group A Strep DNA NOT DETECTED (Not Detectd) Discharge Plan Discharge Clinical Impression: Dysuria, Generalized body aches Patient Disposition: Home, Self-Care Condition: Stable Additional Instructions: Please follow-up with your primary care provider [facility] in the next 3-5 days for further evaluation and follow-up. Please call to schedule appointment. Please rest, drink plenty of fluids. Please alternate taking Tylenol 1000 mg and ibuprofen 600 mg every 6 hours as needed for pain. Please start antibiotics in the next 24-48 hours if you continue to have urinary symptoms. Please return to the emergency department if you develop persistent high fever, severe pain, persistent vomiting, difficulty breathing, any worsening symptoms. It was a pleasure taking care of you today. We hope you feel better soon. Prescriptions: No Action escitalopram oxalate 10 mg tablet 10 mg PO DAILY budesonide-formoterol 80-4.5 mcg/actuation HFA aerosol inhaler 2 puff inhalation BID Qty: 1 0RF Rx Instructions: OK to use every 4 hours if experiencing shortness of breath or wheezing between twice daily dosing. Follow Up/Referrals: Provider,Not a Local [Primary Care Provider, Family Practice] [facility]
[2025-04-17] MEDS: ACETAMINOPHEN 500 MG TABLET 1000 MG PO (03:02)
[2025-04-17] MEDS: IBUPROFEN 200 MG TABLET 600 MG PO (03:02)
--- OUTSIDE RECORDS SUMMARY | 2025-04-17 03:08 | XMS_ITS | Clinical Summary ---
Author Organization [facility] Address [address] [place] [address] Care Team Providers Care Mold Technician Name Role Phone Pcp, No Primary Care Provider Unavailabl e Allergies No known active allergies Medications No known medications Active Problems Problem Noted Date Diagnosed Date Gastroparesis 02/15/2024 Overview (02/15/2024): Summer 2023: Gastroparesis seen on gastric emptying study in [place]. Iron deficiency anemia 02/15/2024 Overview (02/15/2024): Received IV Iron 2022 in [place]. Anxiety 02/15/2024 Overview (02/15/2024): Anxiety: on Lexapro. Encounters Date Type Department Care Team Description 03/03/2025 2:40 PM CDT Office Visit [facility] [address] [place] [address] Carolina Sifuentes MD Follow Up (Still fatigued - roommate has [place]. /Exhausted after running/Elevated HR at rest /Increased foot intake - feels more tired) 03/03/2025 Travel 02/20/2025 Telephone [facility] [address] [place] [address] Carolina Sifuentes MD Lab (Thyroid) 02/17/2025 3:30 PM CDT Ancillary Procedure [facility] [address] [place] [address] 02/17/2025 2:40 PM CDT Office Visit [facility] [address] [place] [address] Carolina Sifuentes MD Breathing Problem (vocal cord [...] Results * HETEROPHILE (03/03/2025 2:58 PM CDT) [facility] HETEROPHILE, MONO SCREEN NEGATIVE NEGATIVE 03/04/2025 12:45 PM CDT [facility] Blood BLOOD SPECIMEN / Unknown [facility] / Unknown 03/03/2025 2:58 PM CDT 03/03/2025 2:58 PM CDT Carolina Sifuentes MD HEMATOLOGY Fi nal Result [facility] [address] [place] [address], * (ABNORMAL) CBC WITH AUTO DIFFERENTIAL (02/17/2025 3:36 PM CDT) [facility] WHITE BLOOD CELL COUNT 6.4 3.8 [...] MD HEMATOLOGY Fi nal Result [facility] [address] [address], * TSH WITH REFLEX (02/17/2025 3:36 PM CDT) TSH W/REFLEX TO FT4 1.41 mIU/L 02/22/2025 3:53 AM CDT [facility] Comment: Reference Range 1-19 Years 0.50-4.30 Ranges First trimester 0.26-2.66 Second trimester 0.55-2.73 Third trimester 0.43-2.91 Blood BLOOD SPECIMEN / Unknown [facility] / Unknown 02/17/2025 3:36 PM CDT 02/17/2025 3:36 PM CDT Carolina Sifuentes MD CHEMISTRY Fi nal Result [facility] [address] [address], * VITAMIN D 25 (DEFICIENCY) (02/17/2025 3:36 PM CDT) VITAMIN D,25-OH,TOTAL,IA 44 30 - 100 ng/mL 02/18/2025 4:57 AM CDT [facility] Comment: Vitamin D Status 25-OH Vitamin D: Deficiency: <20 ng/mL Insufficiency: 20 - 29 ng/mL Optimal: > or = 30 ng/mL For 25-OH Vitamin D testing on patients on D2-supplementation and patients for whom quantitation of D2 and D3 fractions is required, the QuestAssureD(TM) 25-OH VIT D, (D2,D3), LC/MS/MS is recommended: order code 14180 (patients >2yrs). See Note 1 Note 1 For additional information, please refer to http://education.Roomixer/faq/JJC462 (This link is being provided for informational/ educational purposes only.) Blood BLOOD SPECIMEN / Unknown [facility] / Unknown 02/17/2025 3:36 PM CDT 02/17/2025 3:36 PM CDT Carolina Sifuentes MD SEND OUTS Fi nal Result Performing Organization Address [facility] Co de Phone Number [facility] [address] [address], [place] [phone] * (ABNORMAL) EBV AB IGG IGM AND EBNA (02/17/2025 3:36 PM CDT) EBV VIRAL CAPSID AG (VCA) AB (IGG) 169.00(H) U/mL 02/18/2025 3:50 PM CDT [facility] Comment: U/mL Interpretation ---- <18.00 Negative 18.00-21.99 Equivocal >21.99 Positive EBV VIRAL CAPSID AG (VCA) AB (IGM) <36.00 U/mL 02/18/2025 3:50 PM CDT [facility] Comment: U/mL Interpretation ---- <36.00 Negative 36.00-43.99 Equivocal >43.99 Positive EBV NUCLEAR AG (EBNA) AB (IGG) >600.00(H ) U/mL 02/18/2025 3:50 PM CDT [facility] Comment: U/mL Interpretation ---- <18.00 Negative 18.00-21.99 Equivocal >21.99 Positive BERTHA MCKEON VIRUS ANTIBODY PANEL INTERPRETATION SEE NOTE 02/18/2025 3:50 PM CDT [facility] Comment: Suggestive of a past Bertha-Mckeon virus infection. In infants, a similar pattern may occur as a result of passive maternal transfer of antibody. Blood BLOOD SPECIMEN / Unknown [facility] / Unknown 02/17/2025 3:36 PM CDT 02/17/2025 3:36 PM CDT Carolina Sifuentes MD SEND OUTS Fi nal Result Performing Organization Address [facility] Co de Phone Number [facility] [address] [place] [address], * LYME SCREEN W/REFLEX (02/17/2025 3:36 PM CDT) [facility] LYME AB, SCREEN < or = 0.90 index 02/20/2025 10:55 PM CDT [facility] Comment: REFERENCE RANGE: < OR = 0.90 [...] Carolina Sifuentes MD SEND OUTS nal Result [facility] [address] [place] [address], * CMV IGM ANTIBODY (02/17/2025 3:36 PM CDT) [facility] CYTOMEGALOVIRUS ANTIBODY (IGM) <30.00 AU/mL 02/18/2025 3:43 PM CDT [facility] Comment: AU/mL Interpretation ----- <30.00 No Antibody [...] OUTS Fi nal Result Performing Organization Address [facility]/ZIP Co de Phone Number [facility] [address] [address], [place] [phone] * FERRITIN (02/17/2025 3:36 PM CDT) FERRITIN 55 16 - 154 ng/mL 02/18/2025 4:57 AM CDT [facility] Blood BLOOD SPECIMEN / Unknown [facility] / Unknown 02/17/2025 3:36 PM CDT 02/17/2025 3:36 PM CDT Carolina Sifuentes MD CHEMISTRY Fi nal Result Performing Organization Address [facility] Co de Phone Number [facility] [address] [address], [place] [phone] * COMP METABOLIC PANEL (02/17/2025 3:36 PM [...] MD CHEMISTRY Fi nal Result [facility] [address] [place] [address], * XR CHEST 2 VIEWS PA AND [...] nal Result from Last 3 Months Insurance [facility] EMP Care Teams Mold Technician Relationship Specialty Start Date End Date Pcp, No . PCP - General 02/15/24
--- OUTSIDE RECORDS SUMMARY | 2025-04-17 03:08 | XMS_ITS | Patient Health Record ---
Author Organization Arpan Munoz M.D. Address [address] [place] [address] Care Team Providers Care Course Instructor Name Role Phone Ksenia Delgadillo Primary Care Provider Carlito Lindsay Unavailable [phone] Allergies No Known Allergies Reason For Referral [...] Status Risk Notes Problem Generalized abdominal pain (364504318) Generalized abdominal pain (R10.84) Active confirmed Problem Diarrhea (21696677) Diarrhea, unspecified (R19.7) Active confirmed Problem Gastroparesis (500272114) Gastroparesis (K31.84) Active confirmed Plan Of Treatment Pending Test Test Name Order Date Immunoglobulins Quantitative A/E/G/M, Se rum 09/23/2023 Iron/TIBC* 09/23/2023 Insurance Providers Payer Name Payer Address Payer Phone Subscriber Number Group Number Insured Name Patient Relationship to Insured Coverage Start Date Coverage End Date [employer] [address] [address] [place], [place] [id number] Ariane Cortez Child - Insured has Financial Responsibility [facility] [address] [address] [place] [address] [id number] Juvencio Duncan Child - Insured has Financial Responsibility Medical (General) History Medical History History ICD Code Iron deficiency Gastroparesis Gastroesophageal reflux disease (GERD) Bleeding disorder Poor appetite Family history of hereditarty hemorrhagi c telangiectasia (HHT) History of mononucleosis Menorrhagia Surgical History Surgery Date(Month/Year) EGD 11/2022 Nasal septum surgery 2020
[2025-04-17 03:10] VITALS: BP 129/84; PULSE 84; RESP 18; TEMP 36.8; O2SAT 99
[2025-04-17 03:11] VITALS: BP 129/84; PULSE 84; RESP 18; TEMP 36.8
[2025-04-17 03:49] LABS: Strep A DNA Probe* NOT DETECTED (Not Detectd)
[2025-04-17 05:14] LABS: PCR FLU A Negative PCR FLU A (Negative); PCR FLU B Negative PCR FLU B (Negative); PCR RSV Negative PCR RSV (Negative); SARS PCR* Negative SARS-CoV-2 (Negative)
--- NOTE | 2025-04-17 09:11 | ED.NURSE ---
Patient called for results of her swabs. These were reported to patient. No further questions at this time.
== END 2025-04-17 03:11 | disposition home or self-care (01) ==
LOC: ED 04-17 03:06
PROVIDERS: Emergency Provider Emergency Medicine
DX: R30.0 Dysuria (principal)
CPT/HCPCS: 81001; 87086; 87631; 87651; 99283; 99284; A9270

== ENCOUNTER 2025-04-18 10:41 | Outpatient (CLI) | payer BC, SELFPAY ==
[2025-04-20 23:12] LABS: HSV 1 Subtype by PCR Not Detected; HSV 2 Subtype by PCR Not Detected; Herpes Simplex Subtype Source Vesicle
== END 2025-04-18 10:42 | disposition home or self-care (01) ==
LOC: NFLDUCREF 10:42
PROVIDERS: Visit Provider Physician Assistant
DX: N89.8 Other specified noninflammatory disorders of vagina (principal)
CPT/HCPCS: 87086; 87529